=== PATIENT | female | born 1960 | race Asian ===

== ENCOUNTER 2017-07-07 12:13 | Emergency (ER) | payer OTHER ==
[~2017-07-07] VITALS: Ht 149.9 cm; Wt 56.0 kg
[2017-07-07] MEDS ORDERED: VALIUM5 MG PO (14:13)
[2017-07-07] MEDS ORDERED: MOTRIN600 MG PO (14:13)
[2017-07-07] MEDS ORDERED: LIDODERM 5% P1 PATCH TD (14:13)
[2017-07-07 14:33] VITALS: BP 116/67
== END 2017-07-07 14:35 | disposition home or self-care (01) ==
LOC: EME 12:13
DX: M62.838 Other muscle spasm (principal); M50.10 Cervical disc disorder with radiculopathy, unspecified cervical region; M25.512 Pain in left shoulder; R11.0 Nausea
CPT/HCPCS: 72040; 99281; 99283; J1885